=== PATIENT | female | born 1990 | race African-American/Black ===

== ENCOUNTER 2021-10-01 13:05 | Emergency (ER) | payer MEDICAID ==
[~2021-10-01] VITALS: Ht 167.6 cm; Wt 60.0 kg
[2021-10-01 13:07] VITALS: BP 114/70
[2021-10-01] MEDS ORDERED: CEPH500T MT (14:45)
[2021-10-01] MEDS ORDERED: IBUP-2029 MT (14:45)
[2021-10-01] MEDS ORDERED: SULF1TAB48 MT (14:45)
== END 2021-10-01 14:50 | disposition home or self-care (01) ==
LOC: ER 13:05
DX: L03.032 Cellulitis of left toe (principal)
CPT/HCPCS: 73590; 93971; 99284

== ENCOUNTER 2025-05-22 22:06 | Emergency (ER) | payer MEDICAID, OTHER ==
[~2025-05-22] VITALS: Ht 157.5 cm; Wt 73.0 kg
[~2025-05-22 22:06] MED LIST: CEPH500T MT; IBUP-2029 MT; SULF1TAB48 MT
[2025-05-22 22:38] VITALS: O2SAT 97
[2025-05-23] MEDS: IBUPROFEN 600MG TABLET PO ONE (00:23)
[2025-05-23] MEDS ORDERED: IBUP-2029 MT (00:53)
[2025-05-23 01:03] VITALS: BP 149/88; PULSE 90; RESP 19; TEMP 36.6; O2SAT 98
== END 2025-05-23 01:07 | disposition home or self-care (01) ==
LOC: ER 22:06
DX: G89.29 Other chronic pain (principal); M79.605 Pain in left leg; M25.572 Pain in left ankle and joints of left foot; F20.9 Schizophrenia, unspecified; F31.9 Bipolar disorder, unspecified; Z79.899 Other long term (current) drug therapy
CPT/HCPCS: 73610; 99283